=== PATIENT | male | born 1945 | race Caucasian/White ===

== ENCOUNTER 2018-04-21 07:04 | Inpatient (IN) | payer MEDICARE, OTHER | END 2018-04-22 11:54 | disposition home or self-care (01) | LOC: PAS IN 07:04 → ORTHO 4S 13:45 | DX: M19.011 Primary osteoarthritis, right shoulder (principal); M25.511 Pain in right shoulder ==

== ENCOUNTER 2020-06-24 17:30 | Emergency (ER) | payer MEDICARE, OTHER ==
[~2020-06-24] VITALS: Ht 172.7 cm; Wt 79.4 kg
[~2020-06-24 17:30] MED LIST: FLUT16SP10; LISI20TA28 PO; PANT40TA54 PO
[2020-06-24 17:55] VITALS: BP 152/83
== END 2020-06-24 19:42 | disposition left against medical advice (07) ==
LOC: ER 17:30
DX: R06.6 Hiccough (principal); Z53.21 Procedure and treatment not carried out due to patient leaving prior to being seen by health care provider